=== PATIENT | male | born 1960 | race Hispanic/Latino ===

== ENCOUNTER 2017-12-09 14:02 | Emergency (ER) | payer OTHER ==
[2017-12-09] MEDS ORDERED: TETANUS & DIPHTHERIA TOX,ADULT 0.5 ML VIAL ONE (14:42)
--- NOTE | 2017-12-09 15:02 | RAD REPORT ---
EXAM DESCRIPTION: RAD - Forearm Left - 12/09/2017 2:52 pm CLINICAL HISTORY: Left forearm pain status post injury FINDINGS: No fracture is seen. A 4 millimeter radiopaque foreign body is present within the anteromedial soft tissues of the mid to distal forearm
--- NOTE | 2017-12-09 15:03 | RAD REPORT ---
EXAM DESCRIPTION: RAD - Humerus Left - 12/09/2017 2:52 pm CLINICAL HISTORY: Left arm pain status post injury FINDINGS: No fracture is seen. A radiopaque foreign body is not seen
--- NOTE | 2017-12-09 15:49 | ER ---
Nurse's Notes [facility] Name: Quan Benson Age: 57 yrs Sex: Male : 1960 Arrival Date: 12/09/2017 Time: 14:06 Bed 14 Private MD: Bety Altamirano H Diagnosis: Metalic FB to left forearm Presentation: 12/09 14:10 Presenting complaint: Patient states: "I think I got a piece of metal from the lk1 bulldozer into my arm (left). I bled really bad, I tried to dig it out, but it's got my whole hand sore.". Transition of care: patient was not received from another setting of care. Onset of symptoms was December 09, 2017 at 10:00. Risk Assessment: Do you want to hurt yourself or someone else? Patient reports no desire to harm self or others. Initial Sepsis Screen: Does the patient meet any 2 criteria? No. Patient's initial sepsis screen is negative. Does the patient have a suspected source of infection? No. Patient's initial sepsis screen is negative. Care prior to arrival: None. 14:10 Method Of Arrival: Ambulatory [facility] 14:10 Acuity: JOSE FRANCISCO 3 lk1 Triage Assessment: 14:24 General: Appears in no apparent distress. uncomfortable, Behavior is calm, cooperative, hj appropriate for age. Pain: Complains of pain in left forearm. EENT: No signs and/or symptoms were reported regarding the EENT system. Neuro: Level of Consciousness is awake, alert, obeys commands, Oriented to person, place, time, situation, Appropriate for age. Cardiovascular: Capillary refill < 3 seconds Patient's skin is warm and dry. Respiratory: Airway is patent Respiratory effort is even, unlabored, Respiratory pattern is regular, symmetrical. GI: No signs and/or symptoms were reported involving the gastrointestinal system. : No signs and/or symptoms were reported regarding the genitourinary system. Derm: Reports pain feels i have a piece of metal in my L forearm;. Musculoskeletal: No signs and/or symptoms reported regarding the musculoskeletal system. Historical: - Allergies: 14:12 No Known Allergies; lk1 - PMHx: 14:12 Kidney stones; lk1 - PSHx: 14:12 Knee surgery; ankle surgery (2); Lithotripsy; lk1 - Immunization history:: Adult Immunizations up to date. - Social history:: Smoking status: Patient/guardian denies using tobacco. - Ebola Screening: : No symptoms or risks identified at this time. Screenin:23 Abuse screen: Denies threats or abuse. Denies injuries from another. Nutritional hj screening: No deficits noted. Tuberculosis screening: No symptoms or risk factors identified. Fall Risk None identified. Assessment: 14:25 Reassessment: see triage assessment;. hj Vital Signs: 14:12 BP 151 / 97; Pulse 78; Resp 15; Temp 98.0; Pulse Ox 97% on R/A; Weight 96.16 kg (R); lk1 Height 5 ft. 9 in. (175.26 cm) (R); Pain 6/10; 14:12 Body Mass Index 31.31 (96.16 kg, 175.26 cm) lk1 ED Course: 14:06 Patient arrived in ED. mr 14:06 Bety Altamirano DO is Private Physician. mr 14:11 Triage completed. lk1 14:14 Joshua Evans MD is Attending Physician. kdr 14:14 Arm band placed on right wrist. lk1 14:23 Ronny Ackerman RN is Primary Nurse. hj 14:25 Patient has correct armband on for positive identification. Bed in low position. Call hj light in reach. Side rails up X 1. 14:48 X-ray completed. Portable x-ray completed in exam room. Patient tolerated procedure ml well. 14:50 Humerus Left XRAY In Process Unspecified. EDMS 14:50 Forearm Left XRAY In Process Unspecified. EDMS 15:48 Bety Altamirano DO is Referral Physician. kdr 16:11 No provider procedures requiring assistance completed. Patient did not have IV access hj during this emergency room visit. intact, bleeding controlled, No redness/swelling at site. Pressure dressing applied. 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 Exp: hj 02/11/2020. Lot #: [id number]. } Route: IM; Site: right deltoid; 14:42 Follow up: Response: No adverse reaction hj 15:50 Drug: KeFLEX 500 mg Route: PO; hj 15:52 Follow up: Response: No adverse reaction hj Outcome: 15:49 Discharge ordered by . kdr 16:11 Discharged to home ambulatory, with family. hj 16:11 Condition: stable 16:11 Discharge instructions given to patient, Instructed on discharge instructions, follow up and referral plans. to meet Catarina preop nurse at the [facility] 12/09/17 at 8am, and nothing to eat or drink after 12 MN tonight; Demonstrated understanding of instructions, follow-up care, medications, Prescriptions given X 2. 16:12 Patient left the ED. hj Signatures: Dispatcher [employer] EDMS Joshua Evans MD MD kdr Rivera, Maria mr Lopez, Ronny Moreno RN RN Lisa Pimentel RN RN lk1
--- NOTE | 2017-12-09 15:49 | EDPHYS ---
Physician Documentation [facility] Name: Quan Benson Age: 57 yrs Sex: Male : 1960 Arrival Date: 12/09/2017 Time: 14:06 Bed 14 Private MD: Bety Altamirano H ED Physician Joshua Evans HPI: 12/09 19:05 This 57 yrs old Male presents to ER via Ambulatory with complaints of Foreign kdr Body In Arm. 19:05 The patient or guardian complains of injury, pain, that is acute, penetrating injury, kdr The patient was helping a friend with getting a bull dozer track back on. When they were hammering, a piece of metal flew into the patients left forearm. Now he has pain to his left forearm when he flexes his wrist, a puncture wound. The complaints affect the palmar aspect of left forearm. Context: The problem was sustained on a street or driveway. Onset: The symptoms/episode began/occurred suddenly, just prior to arrival. Treatment prior to arrival includes: no previous treatment. Modifying factors: The symptoms are alleviated by nothing. the symptoms are aggravated by movement, bending arm. Associated signs and symptoms: The patient has no apparent associated signs or symptoms. Severity of symptoms: At their worst the symptoms were mild, in the emergency department the symptoms are unchanged. The patient has not experienced similar symptoms in the past. The patient has not recently seen a physician. Historical: - Allergies: 14:12 No Known Allergies; lk1 - PMHx: 14:12 Kidney stones; lk1 - PSHx: 14:12 Knee surgery; ankle surgery (2); Lithotripsy; lk1 - Immunization history:: Adult Immunizations up to date. - Social history:: Smoking status: Patient/guardian denies using tobacco. - Ebola Screening: : No symptoms or risks identified at this time. ROS: 19:05 Constitutional: Negative for fever, chills, and weight loss, Eyes: Negative for injury, kdr pain, redness, and discharge, Neck: Negative for injury, pain, and swelling, Cardiovascular: Negative for chest pain, palpitations, and edema, Respiratory: Negative for shortness of breath, cough, wheezing, and pleuritic chest pain, Abdomen/GI: Negative for abdominal pain, nausea, vomiting, diarrhea, and constipation, Back: Negative for injury and pain, : Negative for injury, bleeding, discharge, and swelling, Skin: Negative for injury, rash, and discoloration, Neuro: Negative for headache, weakness, numbness, tingling, and seizure activity. Psych: Negative for depression, anxiety, suicide ideation, homicidal ideation, and hallucinations, Allergy/Immunology: Negative for hives, rash, and allergies, Endocrine: Negative for neck swelling, polydipsia, polyuria, polyphagia, and marked weight changes, Hematologic/Lymphatic: Negative for swollen nodes, abnormal bleeding, and unusual bruising. 19:05 MS/extremity: Positive for decreased range of motion, pain, tenderness, of the palmar aspect of left forearm. Exam: 19:05 Constitutional: This is a well developed, well nourished patient who is awake, alert, kdr and in no acute distress. Head/Face: Normocephalic, atraumatic. Eyes: Pupils equal round and reactive to light, extra-ocular motions intact. Lids and lashes normal. Conjunctiva and sclera are non-icteric and not injected. Cornea within normal limits. Periorbital areas with no swelling, redness, or edema. Neck: Trachea midline, no thyromegaly or masses palpated, and no cervical lymphadenopathy. Supple, full range of motion without nuchal rigidity, or vertebral point tenderness. No Meningismus. Chest/axilla: Normal chest wall appearance and motion. Nontender with no deformity. No lesions are appreciated. Cardiovascular: Regular rate and rhythm with a normal S1 and S2. No gallops, murmurs, or rubs. Normal PMI, no JVD. No pulse deficits. Respiratory: Lungs have equal breath sounds bilaterally, clear to auscultation and percussion. No rales, rhonchi or wheezes noted. No increased work of breathing, no retractions or nasal flaring. Abdomen/GI: Soft, non-tender, with normal bowel sounds. No distension or tympany. No guarding or rebound. No evidence of tenderness throughout. Back: No spinal tenderness. No costovertebral tenderness. Full range of motion. Skin: Warm, dry with normal turgor. Normal color with no rashes, no lesions, and no evidence of cellulitis. Neuro: Awake and alert, GCS 15, oriented to person, place, time, and situation. Cranial nerves II-XII grossly intact. Motor strength 5/5 in all extremities. Sensory grossly intact. Cerebellar exam normal. Normal gait. Psych: Awake, alert, with orientation to person, place and time. Behavior, mood, and affect are within normal limits. 19:05 Skin: injury, laceration(s), the wound is approximately 0.5 cm(s), of the palmar aspect of left forearm, puncture(s), that are deep, of the palmar aspect of left forearm. Vital Signs: 14:12 BP 151 / 97; Pulse 78; Resp 15; Temp 98.0; Pulse Ox 97% on R/A; Weight 96.16 kg (R); lk1 Height 5 ft. 9 in. (175.26 cm) (R); Pain 6/10; 14:12 Body Mass Index 31.31 (96.16 kg, 175.26 cm) lk1 MDM: 15:49 Patient medically screened. kdr 19:05 Data reviewed: vital signs, nurses notes, radiologic studies. Counseling: I had a kdr detailed discussion with the patient and/or guardian regarding: the historical points, exam findings, and any diagnostic results supporting the discharge/admit diagnosis, radiology results, the need for outpatient follow up. Physician consultation: Krzysztof Jj MD and will see patient In outpatient surgery at 09:00 for exploration and removal of FB. tomorrow. 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 Exp: [employer] 02/11/2020. Lot #: [id number]. } Route: IM; Site: right deltoid; 14:42 Follow up: Response: No adverse reaction 15:50 Drug: KeFLEX 500 mg Route: PO; 15:52 Follow up: Response: No adverse reaction Disposition: 12/09/17 15:49 Discharged to Home. Impression: Metalic FB to left forearm. - Condition is Stable. - Discharge Instructions: Foreign Body. - Prescriptions for Keflex 500 mg Oral Capsule - take 1 capsule by ORAL route every 6 hours for 10 days; 40 capsule. Tramadol 50 mg Oral Tablet - take 1 tablet by ORAL route every 8 hours as needed; 12 tablet. - Medication Reconciliation Form, Thank You Letter, Antibiotic Education form. - Follow up: Bety Altamirano DO; When: 2 - 3 days; Reason: If symptoms return, Further diagnostic work-up, Recheck today's complaints, Continuance of care, Re-evaluation by your physician. - Problem is new. - Symptoms are unchanged. Signatures: Dispatcher [employer] EDMS Joshua Evans MD MD [facility] Ronny Ackerman RN RN Lisa Rueda RN RN lk1 Corrections: (The following items were deleted from the chart) 16:12 15:49 12/09/2017 15:49 Discharged to Home. Impression: Metalic FB to left forearm. hj Condition is Stable. Forms are Medication Reconciliation Form, Thank You Letter, Antibiotic Education, Prescription Opioid Use. Follow up: Bety Altamirano; When: 2 - 3 days; Reason: If symptoms return, Further diagnostic work-up, Recheck today's complaints, Continuance of care, Re-evaluation by your physician. Problem is new. Symptoms are unchanged. kdr
[2017-12-09] MEDS ORDERED: CEPHALEXIN 250 MG CAP ONE (15:53)
== END 2017-12-09 16:12 | disposition home or self-care (01) ==
LOC: ER 14:02
DX: S51.842A Puncture wound with foreign body of left forearm, initial encounter (principal); W45.8XXA Other foreign body or object entering through skin, initial encounter; Y93.89 Activity, other specified; Y92.410 Unspecified street and highway as the place of occurrence of the external cause; Z23 Encounter for immunization
CPT/HCPCS: 90714; 99283

== ENCOUNTER 2017-12-10 11:59 | Day surgery (SDC) | payer OTHER ==
[2017-12-10] MEDS ORDERED: Ringers Lactate 1,000 ML IV ONE (12:17)
[2017-12-10] MEDS ORDERED: CEFAZOLIN/SWI 1gm 1 GM/10 ML SYR ONE (12:18)
[2017-12-10] MEDS ORDERED: PROPOFOL 200 MG/20 ML VIAL IV ONE (12:37)
[2017-12-10] MEDS ORDERED: LIDOCAINE 1% MPF 5 ML VIAL ONE (12:38)
[2017-12-10] MEDS ORDERED: MIDAZOLAM HCL 2 MG/2 ML INJ ONE (12:38)
[2017-12-10] MEDS ORDERED: ONDANSETRON 4 MG/2 ML VIAL ONE (12:41)
[2017-12-10] MEDS ORDERED: FENTANYL CITR 250 MCG/5 ML ONE (12:42)
[2017-12-10] MEDS ORDERED: FENTANYL CITR 100 MCG/2 ML ONE (12:42)
--- NOTE | 2017-12-10 14:17 | RAD REPORT ---
EXAM DESCRIPTION: RAD - Forearm Left - 12/10/2017 2:09 pm CLINICAL HISTORY: FOREIGN BODY REMOVAL IN OR 1 WITH DOCTOR ART COMPARISON: Forearm Left dated 12/09/2017 FINDINGS: Fluoroscopic imaging the left forearm was submitted as part of a foreign body removal. Det ails of procedure not available. Fluoro time 0.1 minutes.
[2017-12-10] MEDS: MEPERIDINE HCL 25 MG/0.5 ML ONE ×2 (14:20→14:28)
[2017-12-10] MEDS ORDERED: CODEINE 30MG/APAP 300MG TAB ONE (15:36)
--- NOTE | 2017-12-11 01:22 | OP ---
Surgeon: Krzysztof Jj MD [employer] Class[employer] Teacher: Iban. Preoperative Diagnosis: Foreign body of the left forearm. Postoperative Diagnosis: Foreign body of the left forearm. Procedure Performed: Removal of foreign body and debridement of skin and subcutaneous tissue. Anesthesia: General. Procedure In Detail: After satisfactory induction of general anesthesia, the left arm was prepped wi th Betadine scrub, Betadine paint, dry sterile drapes applied in the usual manner. The arm was eleva omari exsanguinated with an Esmarch, tourniquet was inflated to 250 mmHg. Hand was placed on a [place] table. A curvilinear incision was made with a scalpel excising out the entry site and extended prox imal to distal ulnar aspect of the volar forearm about the midshaft. Dissection proceeded down. The fascia was violated only about 3 mm opening. Then, after doing that, the muscle was opened in the d irection of fibers and the foreign body was identified and it was removed. Cultures were taken. The n, the wound jet lavage was irrigated with 3 L of dilute Betadine solution. Tourniquet was released. Electrocautery was used for hemostasis. C-arm was brought in. X-ray taken, documented removal of foreign body and wound was closed with 4-0 Prolene in vertical mattress. The center area of the entr y site was left open. Dressed with Xeroform, 2 inch Sheree, and Kerlix. The patient tolerated the procedure well and returned to Recovery. BOBBY/MONIQUE Voice ID: [id number] Report ID: [id number]
== END 2017-12-10 16:25 | disposition home or self-care (01) ==
LOC: OR 11:59
PROVIDERS: ATTEND Specialist
PROC: 0JDH3ZZ Extraction of Left Lower Arm Subcutaneous Tissue and Fascia, Percutaneous Approach (ICD-10-PCS; 2017-12-10)
PROC: 0KCB0ZZ Extirpation of Matter from Left Lower Arm and Wrist Muscle, Open Approach (ICD-10-PCS; principal; 2017-12-10 13:45)
DX: M79.5 Residual foreign body in soft tissue (principal)
CPT/HCPCS: 87070; 87075; 87077; 87186; 87205; J0690; J2175; J2250; J2405; J3010

== ENCOUNTER 2018-07-04 13:16 | Emergency (ER) | payer OTHER ==
[2018-07-04] MEDS ORDERED: LIDOCAINE 1% W/EPI 1:100,000 MDV 50 ML VIAL ONE (14:53)
--- NOTE | 2018-07-04 15:22 | RAD REPORT ---
EXAM DESCRIPTION: RAD - Hand Right 3 View - 07/04/2018 3:15 pm CLINICAL HISTORY: PAIN Right hand laceration COMPARISON: No comparisons FINDINGS: No fracture, dislocation or radiopaque foreign body is seen. Soft tissue laceration is not ed involving the mid dorsal right hand.
[2018-07-04] MEDS ORDERED: CEPHALEXIN 250 MG CAP ONE (15:23)
[2018-07-04] MEDS ORDERED: CEFAZOLIN 2GM (PREMIX IV) 2 GM/50 ML BAG ONE (15:24)
[2018-07-04] MEDS ORDERED: ONDANSETRON 4 MG/2 ML VIAL ONE (15:24)
[2018-07-04] MEDS ORDERED: MORPHINE 4 MG/ML SYR ONE (15:24)
--- NOTE | 2018-07-04 15:24 | RAD REPORT ---
EXAM DESCRIPTION: RAD - Hand Left 3 View - 07/04/2018 3:16 pm CLINICAL HISTORY: PAIN COMPARISON: No comparisons FINDINGS: Mild arthritic changes involve the left third DIP joint. Mild arthritic changes also seen at the radiocarpal joint. No acute fracture or dislocation. No radiopaque foreign body.
[2018-07-04] MEDS ORDERED: NA CHLORIDE 0.9% 1,000 ML ONE (15:25)
[2018-07-04] MEDS ORDERED: TETANUS & DIPHTHERIA TOX,ADULT 0.5 ML VIAL ONE (15:25)
[2018-07-04] MEDS ORDERED: KETOROLAC 30 MG/ML INJ ONE (15:38)
--- NOTE | 2018-07-04 17:07 | ER ---
Nurse's Notes [facility] Name: Quan Benson Age: 58 yrs Sex: Male : 1960 Arrival Date: 07/04/2018 Time: 13:19 Bed 28 Private MD: Bety Altamirano H Diagnosis: Laceration without foreign body of hand-right and left hands;Contusion of right elbow Presentation: 07/04 13:34 Presenting complaint: Patient states: right hand, right 2nd and 5th digit laceration sv occurred at work. Transition of care: patient was not received from another setting of care. Complicating Factors: There are no complicating factors for this patient. Onset of symptoms was July 04, 2018 at 12:30. Care prior to arrival: Pt had a paper towel wrapped around lacerations. 13:34 Method Of Arrival: Ambulatory sv 13:34 Acuity: JOSE FRANCISCO 2 sv 14:40 Risk Assessment: Do you want to hurt yourself or someone else? Patient reports no rb1 desire to harm self or others. Initial Sepsis Screen: Does the patient meet any 2 criteria? No. Patient's initial sepsis screen is negative. Does the patient have a suspected source of infection? No. Patient's initial sepsis screen is negative. Triage Assessment: 13:34 General: Appears in no apparent distress. comfortable, Behavior is calm, cooperative, sv appropriate for age. Pain: Complains of pain in right hand Pain currently is 8 out of 10 on a pain scale. Neuro: Level of Consciousness is awake, alert, obeys commands, Oriented to person, place, time, situation, Moves all extremities. Respiratory: Respiratory effort is even, unlabored, Respiratory pattern is regular, symmetrical. Derm: Skin is pink, warm \T\ dry. Injury Description: Laceration sustained to right hand is contaminated, jagged, was sustained 30-60 minutes ago. is bleeding a small amount. Historical: - Allergies: 13:36 No Known Allergies; sv - PMHx: 13:36 Kidney stones; sv - PSHx: 13:36 Knee surgery; ankle surgery (2); Lithotripsy; sv - Immunization history:: Last tetanus immunization: up to date. - Family history:: not pertinent. - Ebola Screening: : Patient negative for fever greater than or equal to 101.5 degrees Fahrenheit, and additional compatible Ebola Virus Disease symptoms. - Social history:: Smoking status: Patient uses tobacco products, denies chronic smoking, but will smoke occasionally. Screenin:40 Abuse screen: Denies threats or abuse. Nutritional screening: No deficits noted. rb1 Tuberculosis screening: No symptoms or risk factors identified. Fall Risk None identified. Assessment: 14:40 General: Appears in no apparent distress. comfortable, Behavior is calm, cooperative. rb1 Pain: Complains of pain in right hand Pain currently is 7 out of 10 on a pain scale. Neuro: Level of Consciousness is awake, alert, obeys commands, Oriented to person, place, time, situation. Cardiovascular: Capillary refill < 3 seconds is brisk in bilateral fingers. Respiratory: Airway is patent Respiratory effort is even, unlabored, Respiratory pattern is regular, symmetrical. GI: No signs and/or symptoms were reported involving the gastrointestinal system. : No signs and/or symptoms were reported regarding the genitourinary system. Derm: Skin is dry, Skin is normal, Skin temperature is warm. Musculoskeletal: Range of motion: intact in all extremities. Injury Description: Laceration sustained to dorsum of right hand is contaminated, was sustained is bleeding a small amount. 15:40 Reassessment: Patient appears in no apparent distress at this time. No changes from rb1 previously documented assessment. at bedside. 16:38 Reassessment: Patient appears in no apparent distress at this time. Patient and/or rb1 family updated on plan of care and expected duration. Pain level reassessed. Patient is alert, oriented x 3, equal unlabored respirations, skin warm/dry/pink. Patient denies pain at this time. 17:05 Reassessment: Discharge pending due to elbow X-ray results. rb1 17:35 Reassessment: Patient appears in no apparent distress at this time. No changes from rb1 previously documented assessment. Vital Signs: 13:35 BP 164 / 103; Pulse 58; Resp 16; Temp 98.2; Pulse Ox 98% ; Weight 96.16 kg; Height 5 sv ft. 9 in. (175.26 cm); Pain 8/10; 14:40 BP 164 / 98; Pulse 61; Resp 19; Pulse Ox 99% on R/A; Pain 8/10; rb1 15:40 BP 162 / 99; Pulse 66; Resp 17; Pulse Ox 97% on R/A; rb1 16:40 BP 165 / 95; Pulse 62; Resp 17; Pulse Ox 100% ; rb1 17:40 BP 151 / 91; Pulse 75; Resp 16; Pulse Ox 99% on R/A; Pain 5/10; rb1 13:35 Body Mass Index 31.31 (96.16 kg, 175.26 cm) sv ED Course: 13:19 Patient arrived in ED. sb2 13:19 Bety Altamirano DO is Private Physician. sb2 13:35 Triage completed. sv 13:36 Arm band placed on. sv 13:36 Bandage applied. sv 14:29 Kathia Mcintosh MD is Attending Physician. ma2 14:29 Attending Physician role handed off by Kathia Mcintosh MD beth 14:29 Benito Alva MD is Attending Physician. beth 14:38 Gaye Kennedy, ELOISA is Primary Nurse. rb1 14:40 Patient has correct armband on for positive identification. Bed in low position. Call rb1 light in reach. Side rails up X 1. Pulse ox on. NIBP on. 15:01 Inserted saline lock: 20 gauge in left antecubital area, using aseptic technique. lt1 15:10 Hand Right 3 View XRAY In Process Unspecified. EDMS 15:10 Hand Left 3 View XRAY In Process Unspecified. EDMS 16:55 Elbow Right 3 View XRAY In Process Unspecified. EDMS 17:04 Bety Altamirano DO is Referral Physician. beth 17:06 Krzysztof Jj MD is Referral Physician. beth 17:55 No provider procedures requiring assistance completed. IV discontinued, intact, rb1 bleeding controlled, No redness/swelling at site. Pressure dressing applied. Administered Medications: 14:55 Drug: KeFLEX 500 mg Route: PO; rb1 15:15 Follow up: Response: No adverse reaction rb1 14:58 Drug: NS 0.9% 1000 ml Route: IV; Rate: 1 bolus; Site: left antecubital; rb1 16:44 Follow up: IV Status: Completed infusion rb1 14:58 Drug: Ancef 2 grams Route: IVPB; Infused Over: 30 mins; Site: left antecubital; rb1 15:32 Follow up: Response: No adverse reaction; IV Status: Completed infusion rb1 15:41 Not Given (Patient Refused; Provider notified; pt has had a tetanus shot recently): rb1 Tetanus-Diphtheria Toxoid Adult 0.5 ml IM once 15:43 Not Given (Patient Refused; provider notified): morphine 4 mg IVP once rb1 15:43 Not Given (Patient Refused; provider notified): Zofran 4 mg IVP once; over 2 minutes rb1 15:44 Drug: Lidocaine-Epinephrine -1%: (1:100,000) 1 ml Volume: 20 ml; Route: Infiltration; rb1 Outcome: 17:06 Discharge ordered by . beth 17:55 Discharged to home ambulatory, with significant other. rb1 17:55 Condition: stable 17:55 Discharge instructions given to patient, Instructed on discharge instructions, follow up and referral plans. medication usage, Demonstrated understanding of instructions, follow-up care, medications, Prescriptions given X 3. 18:05 Patient left the ED. rb1 Signatures: Dispatcher [employer] EDMS Marita Davidson RN RN sv Anderson, Corey, MD MD cha Barber, Rebecca, RN RN rb1 Kathia Mcintosh MD MD azNatalie Todd2 Lisa Genao lt1 Corrections: (The following items were deleted from the chart) 13:35 13:34 Acuity: JOSE FRANCISCO 3 sv sv 18:41 18:27 Patient left the ED. rb1 rb1
--- NOTE | 2018-07-04 17:07 | EDPHYS ---
Physician Documentation [facility] Name: Quan Benson Age: 58 yrs Sex: Male : 1960 Arrival Date: 07/04/2018 Time: 13:19 Bed 28 Private MD: Bety Altamirano H ED Physician Benito Alva HPI: 07/04 14:45 This 58 yrs old Male presents to ER via Ambulatory with complaints of beth Laceration To Hand. 14:45 The patient has a laceration related to: working, occurred at home. The laceration(s) beth is(are) located on the right hand and left hand. Onset: The symptoms/episode began/occurred just prior to arrival. Associated signs and symptoms: Pertinent positives: dorsal skin laceration, avulsiom. The patient has not experienced similar symptoms in the past. Historical: - Allergies: 13:36 No Known Allergies; sv - PMHx: 13:36 Kidney stones; sv - PSHx: 13:36 Knee surgery; ankle surgery (2); Lithotripsy; sv - Immunization history:: Last tetanus immunization: up to date. - Family history:: not pertinent. - Ebola Screening: : Patient negative for fever greater than or equal to 101.5 degrees Fahrenheit, and additional compatible Ebola Virus Disease symptoms. - Social history:: Smoking status: Patient uses tobacco products, denies chronic smoking, but will smoke occasionally. ROS: 14:45 Constitutional: Negative for fever, chills, and weight loss, Eyes: Negative for injury, beth pain, redness, and discharge, ENT: Negative for injury, pain, and discharge, Neck: Negative for injury, pain, and swelling, Cardiovascular: Negative for chest pain, palpitations, and edema, Respiratory: Negative for shortness of breath, cough, wheezing, and pleuritic chest pain, Abdomen/GI: Negative for abdominal pain, nausea, vomiting, diarrhea, and constipation, Back: Negative for injury and pain, : Negative for injury, bleeding, discharge, and swelling, Skin: Negative for injury, rash, and discoloration, Neuro: Negative for headache, weakness, numbness, tingling, and seizure, Psych: Negative for depression, anxiety, suicide ideation, homicidal ideation, and hallucinations, Allergy/Immunology: Negative for hives, rash, and allergies, Endocrine: Negative for neck swelling, polydipsia, polyuria, polyphagia, and marked weight changes, Hematologic/Lymphatic: Negative for swollen nodes, abnormal bleeding, and unusual bruising. 14:45 MS/extremity: Positive for decreased range of motion, laceration, pain, swelling, tenderness, of the dorsum of right hand. Exam: 14:45 Constitutional: This is a well developed, well nourished patient who is awake, alert, beth and in no acute distress. Head/Face: Normocephalic, atraumatic. Eyes: Pupils equal round and reactive to light, extra-ocular motions intact. Lids and lashes normal. Conjunctiva and sclera are non-icteric and not injected. Cornea within normal limits. Periorbital areas with no swelling, redness, or edema. ENT: Nares patent. No nasal discharge, no septal abnormalities noted. Tympanic membranes are normal and external auditory canals are clear. Oropharynx with no redness, swelling, or masses, exudates, or evidence of obstruction, uvula midline. Mucous membranes moist. Neck: Trachea midline, no thyromegaly or masses palpated, and no cervical lymphadenopathy. Supple, full range of motion without nuchal rigidity, or vertebral point tenderness. No Meningismus. Chest/axilla: Normal chest wall appearance and motion. Nontender with no deformity. No lesions are appreciated. Cardiovascular: Regular rate and rhythm with a normal S1 and S2. No gallops, murmurs, or rubs. Normal PMI, no JVD. No pulse deficits. Respiratory: Lungs have equal breath sounds bilaterally, clear to auscultation and percussion. No rales, rhonchi or wheezes noted. No increased work of breathing, no retractions or nasal flaring. Abdomen/GI: Soft, non-tender, with normal bowel sounds. No distension or tympany. No guarding or rebound. No evidence of tenderness throughout. Back: No spinal tenderness. No costovertebral tenderness. Full range of motion. Male : Normal genitalia with no discharge or lesions. Neuro: Awake and alert, GCS 15, oriented to person, place, time, and situation. Cranial nerves II-XII grossly intact. Motor strength 5/5 in all extremities. Sensory grossly intact. Cerebellar exam normal. Normal gait. Psych: Awake, alert, with orientation to person, place and time. Behavior, mood, and affect are within normal limits. 14:45 Skin: Appearance: Temperature: warm, Moisture: normal moisture, petechiae, not noted, ecchymosis, not noted, flushing, not noted, diaphoresis is not appreciated, swelling, noted on the right hand and left hand, injury, laceration(s), the wound is approximately 3 cm(s), with a depth of .25 cm(s), of the dorsum of right hand. Vital Signs: 13:35 BP 164 / 103; Pulse 58; Resp 16; Temp 98.2; Pulse Ox 98% ; Weight 96.16 kg; Height 5 sv ft. 9 in. (175.26 cm); Pain 8/10; 14:40 BP 164 / 98; Pulse 61; Resp 19; Pulse Ox 99% on R/A; Pain 8/10; rb1 15:40 BP 162 / 99; Pulse 66; Resp 17; Pulse Ox 97% on R/A; rb1 16:40 BP 165 / 95; Pulse 62; Resp 17; Pulse Ox 100% ; rb1 17:40 BP 151 / 91; Pulse 75; Resp 16; Pulse Ox 99% on R/A; Pain 5/10; rb1 13:35 Body Mass Index 31.31 (96.16 kg, 175.26 cm) sv Laceration: 16:34 Wound Repair of 4cm ( 1.6in ) muscle penetrating laceration to dorsum of right hand and snw cuticle of right 5th finger. Skin/tissue flap noted.. Distal neuro/vascular/tendon intact. Anesthesia: Local anesthetic administered with 5 mls of 1% lidocaine. Wound prep: Extensive cleansing with betadine by nurse, Wound irrigation with saline. Skin closed with 9 5-0 Prolene using simple sutures and sterile technique. Skin closed with 3 5-0 Prolene. Dressed with Neosporin, Kerlix, non-adherent dressing. Patient tolerated well. MDM: 14:29 Patient medically screened. [facility] 14:50 Data reviewed: vital signs, nurses notes, radiologic studies, plain films. [facility] 07/04 14:44 Order name: Hand Right 3 View XRAY; Complete Time: 15:37 [facility] 07/04 14:44 Order name: Hand Left 3 View XRAY; Complete Time: 15:37 [facility] 07/04 16:35 Order name: Elbow Right 3 View XRAY [facility] 07/04 14:44 Order name: Prolene, Sutures; Complete Time: 14:47 [facility] 07/04 14:44 Order name: Dressing - Wound; Complete Time: 16:55 [facility] 07/04 14:44 Order name: Gloves, Sterile; Complete Time: 14:48 [facility] 07/04 14:44 Order name: Setup Suture Tray; Complete Time: 14:48 [facility] 07/04 16:35 Order name: Ice pack; Complete Time: 16:54 [facility] 07/04 17:32 Order name: Sling; Complete Time: 18:38 [facility] Administered Medications: 14:55 Drug: KeFLEX 500 mg Route: PO; rb1 15:15 Follow up: Response: No adverse reaction rb1 14:58 Drug: NS 0.9% 1000 ml Route: IV; Rate: 1 bolus; Site: left antecubital; rb1 16:44 Follow up: IV Status: Completed infusion rb1 14:58 Drug: Ancef 2 grams Route: IVPB; Infused Over: 30 mins; Site: left antecubital; rb1 15:32 Follow up: Response: No adverse reaction; IV Status: Completed infusion rb1 15:41 Not Given (Patient Refused; Provider notified; pt has had a tetanus shot recently): rb1 Tetanus-Diphtheria Toxoid Adult 0.5 ml IM once 15:43 Not Given (Patient Refused; provider notified): morphine 4 mg IVP once rb1 15:43 Not Given (Patient Refused; provider notified): Zofran 4 mg IVP once; over 2 minutes rb1 15:44 Drug: Lidocaine-Epinephrine -1%: (1:100,000) 1 ml Volume: 20 ml; Route: Infiltration; rb1 Disposition: 17:08 Co-signature as Attending Physician, Benito Alva MD I agree with the assessment and [facility] plan of care. Disposition: 07/04/18 17:06 Discharged to Home. Impression: Laceration without foreign body of hand - right and left hands, Contusion of right elbow. - Condition is Stable. - Discharge Instructions: Contusion, Laceration Care, Adult, Elbow Contusion, Contusion, [id number], Laceration Care, Adult, [id number], Elbow Contusion, [id number]. - Prescriptions for Keflex 500 mg Oral Capsule - take 1 capsule by ORAL route every 6 hours for 10 days; 40 capsule. Tylenol- Codeine #3 300-30 mg Oral Tablet - take 2 tablet by ORAL route every 6 hours As needed; 30 tablet. Bactroban 2 % Topical Ointment - Apply to affected area 1 application by TOPICAL route every 12 hours; 30 gram. - Medication Reconciliation Form, Thank You Letter, Antibiotic Education, Prescription Opioid Use form. - Follow up: Bety Altamirano DO; When: 2 - 3 days; Reason: Recheck today's complaints, Continuance of care, Re-evaluation by your physician. Follow up: Krzysztof Jj MD; When: 1 - 2 days; Reason: Recheck today's complaints, Re-evaluation by your physician. - Problem is new. - Symptoms have improved. Signatures: Dispatcher [employer] Marita Sanabria, Benito Lezama RN, MD MD cha Therrien, Shelly, ENROLLMENT SPECIALIST-C ENROLLMENT SPECIALIST-Csnw Gaye Kennedy RN RN rb1 Corrections: (The following items were deleted from the chart) 17:06 17:06 07/04/2018 17:06 Discharged to Home. Impression: Laceration without foreign body beth of hand - right and left hands; Contusion of right elbow. Condition is Stable. Forms are Medication Reconciliation Form, Thank You Letter, Antibiotic Education, Prescription Opioid Use. Follow up: Bety Altamirano; When: 2 - 3 days; Reason: Recheck today's complaints, Continuance of care, Re-evaluation by your physician. Problem is new. Symptoms have improved. beth 18:27 17:06 07/04/2018 17:06 Discharged to Home. Impression: Laceration without foreign body rb1 of hand - right and left hands; Contusion of right elbow. Condition is Stable. Forms are Medication Reconciliation Form, Thank You Letter, Antibiotic Education, Prescription Opioid Use. Follow up: Bety Altamirano; When: 2 - 3 days; Reason: Recheck today's complaints, Continuance of care, Re-evaluation by your physician. Follow up: Krzysztof Jj; When: 1 - 2 days; Reason: Recheck today's complaints, Re-evaluation by your physician. Problem is new. Symptoms have improved. beth
--- NOTE | 2018-07-04 17:15 | RAD REPORT ---
EXAM DESCRIPTION: RAD - Elbow Right 3 View - 07/04/2018 4:53 pm CLINICAL HISTORY: Pain;Swelling COMPARISON: No comparisons FINDINGS: Mild medial soft tissue swelling is present about the elbow. No fracture, dislocation or a ggressive marrow lesion. No foreign body.
== END 2018-07-04 18:27 | disposition home or self-care (01) ==
LOC: ER 13:16
PROC: 0KQC3ZZ Repair Right Hand Muscle, Percutaneous Approach (ICD-10-PCS; principal; 2018-07-04)
DX: S61.412A Laceration without foreign body of left hand, initial encounter (principal); S61.411A Laceration without foreign body of right hand, initial encounter; W45.8XXA Other foreign body or object entering through skin, initial encounter; Y93.9 Activity, unspecified; Y92.009 Unspecified place in unspecified non-institutional (private) residence as the place of occurrence of the external cause
CPT/HCPCS: 90714; 96361; 96365; 99284; J0690; J2405; J7030